=== PATIENT | male | born 1955 | race Caucasian/White ===

== ENCOUNTER 2017-08-01 08:30 | Emergency (ER) | payer BC ==
[~2017-08-01] VITALS: Ht 180.3 cm; Wt 118.2 kg
[~2017-08-01 08:30] MED LIST: PARO10TA PO
[2017-08-01 08:31] VITALS: TEMP 36.7; Ht 180.3 cm; Wt 118.2 kg
[2017-08-01 08:50] VITALS: O2SAT 95
--- NOTE | 2017-08-01 08:55 | EMERGENCY ROOM VISIT NOTE ---
History First contact with patient: 08:37 Chief Complaint: CHEST PAIN Stated Complaint: CHEST DISCOMFORT, FEELING ODD Nursing Triage Summary: pt reports luigi wilburn wondering pains in chest started to sweat this am. thought possibly anxiety not going away. feels alittle foggy. pt reports sx have been going on for a few weeks. denies sob, radiating pain History of Present Illness The patient is a 61 year old male who presents to the Emergency Room with complaints of chest discomfort which began this morning. The patient states he initially describes the discomfort at approximately 6 AM while getting out of bed. He states the pain went away as he got up and was getting ready for work. The patient then went to work, where while sitting in his status, he began experiencing a "weird gentle pain moving around in my chest". He describes some twinges in the left chest wall. He states intermittently, he has been expressing pain for a few weeks. The pain is worse today than it has been over that period of time. He states while sitting at his desk, and when he exerts the pain, he had the urge to move his bowels. He went to the bathroom once, and return to his desk. He states he then had to go and move his bowels again, when he returned to his desk, he began experiencing a foggy sensation, and his arms became sweaty and cold. He states this episode of chest discomfort began at 8:30 this morning. He has not had an EKG performed in years. He denies any exertional chest pain. The bowel movements he experienced were normal. He denies any recent illness or upper respiratory infection symptoms. He does have a history of anxiety-related chest pain, and states this discomfort is similar, however more significant than the discomfort he experienced with anxiety. He denies any chest discomfort at this time, and states his only complaint currently is some fogginess in his head. He denies any headache, dizziness, visual disturbances, difficulty breathing, wheezing, abdominal pain, diarrhea, constipation, cough, congestion, sore throat, upper respiratory infection symptoms, weakness, paresthesias, or other concerning symptoms. The patient does work as an staff electrical engineer, but states he has not been experiencing any increased stress been normal. Review of Systems A complete 10 point review of systems was reviewed with the patient with pertinent positives and negatives as per history of present illness. All else were negative. Social History Smoking Status: Never Smoker Smokeless Tobacco Use: No Alcohol Use: none Drug Use: none Marital Status: Housing Status: lives with family Occupation Status: employed Current/Historical Medications Scheduled Aspirin (Aspirin Ec), 81 MG PO DAILY Physical Exam Vital Signs Date Time Temp Pulse Resp B/P (MAP) Pulse Ox O2 Delivery O2 Flow Rate FiO2 08/01/17 11:09 82 18 152/85 94 Room Air 08/01/17 10:33 76 18 142/79 94 Room Air 08/01/17 08:50 95 Room Air 08/01/17 08:43 84 08/01/17 08:31 36.7 90 18 146/97 98 Room Air Physical Exam VITALS: Vitals are noted on the nurse's note and reviewed by myself. Vital signs stable. GENERAL: This is a 61-year-old obese white male, in no acute distress, nondiaphoretic, well-developed well-nourished. SKIN: The skin was without rashes, erythema, edema, or bruising. There is no tenting of the skin. Capillary reflex less than 2 seconds. HEAD: Normocephalic atraumatic. EARS: External auditory canals clear, tympanic membranes pearly vences without erythema or effusion bilaterally. EYES: Pupils equal round and reactive to light and accommodation. Conjunctivae without injection, sclerae without icterus. Extraocular movements intact. NOSE: Patent, turbinates without inflammation or discharge. No sinus tenderness. MOUTH: Mucous membranes moist. Tonsils are not enlarged. Pharynx without erythema or exudate. Uvula midline. Airway patent. Tongue does not deviate. NECK: Supple without nuchal rigidity. No lymphadenopathy. No thyromegaly. Cervical spine is nontender. No JVD. HEART: Regular rate and rhythm without murmurs gallops or rubs. LUNGS: Clear to auscultation bilaterally without wheezes, rales or rhonchi. No dullness to percussion. No retractions or accessory muscle use. ABDOMEN: Positive bowel sounds x 4. Normal tympanic percussion. Soft, nontender, without masses or organomegaly. Burt sign negative. No guarding or rebound tenderness. MUSCULOSKELETAL: No muscle atrophy, erythema, or edema noted. Full range of motion without joint tenderness in all extremities. No tenderness to palpation. Normal gait. Strength 5/5 throughout. NEURO: Patient was alert and oriented to person place and time. Normal sensation to light and sharp touch. Deep tendon reflexes 2+ throughout. No focal neurological deficits. Medical Decision & Procedures ER Provider Diagnostic Interpretation: CBC was without leukocytosis, anemia, thrombocytopenia. Coagulation studies negative. CMP without significant renal, hepatic, or joint abnormalities. CK-MB was normal. Initial troponin was negative. Repeat troponin at 90 minutes was negative as well. CHEST 2 VIEWS ROUTINE HISTORY: 61 years-old Male chest pain acute atypical chest pain COMPARISON: Chest radiographs 12/01/2007 TECHNIQUE: PA and lateral views of the chest FINDINGS: Cardiomediastinal and hilar silhouettes are within normal limits. No pneumothorax, pleural effusion, focal airspace consolidation or overt pulmonary edema. The bones of the chest appear grossly intact. Degenerative changes are seen within the shoulders and spine. IMPRESSION: No acute process. The above report was generated using voice recognition software. It may contain grammatical, syntax or spelling errors. Electronically signed by: Hao Salas M.D. 08/01/2017 9:14 AM Dictated Date/Time: 08/01/2017 9:13 AM Laboratory Results 08/01/17 08:45 Red Blood Count 5.37, Mean Corpuscular Volume 91.2, Mean Corpuscular Hemoglobin 31.3, Mean Corpuscular Hemoglobin Concent 34.3, Mean Platelet Volume 11.5, Neutrophils (%) (Auto) 45.7, Lymphocytes (%) (Auto) 41.0, Monocytes (%) (Auto) 8.3, Eosinophils (%) (Auto) 4.3, Basophils (%) (Auto) 0.5, Neutrophils # (Auto) 2.75, Lymphocytes # (Auto) 2.47, Monocytes # (Auto) 0.50, Eosinophils # (Auto) 0.26, Basophils # (Auto) 0.03 08/01/17 08:45 Test 08/01/17 08:45 08/01/17 08:51 08/01/17 10:30 White Blood Count 6.02 K/uL (4.8-10.8) Red Blood Count 5.37 M/uL (4.7-6.1) Hemoglobin 16.8 g/dL (14.0-18.0) Hematocrit 49.0 % (42-52) Mean Corpuscular Volume 91.2 fL (80-100) Mean Corpuscular Hemoglobin 31.3 pg (25-34) Mean Corpuscular Hemoglobin Concent 34.3 g/dl (32-36) Platelet Count 167 K/uL (130-400) Mean Platelet Volume 11.5 fL (7.4-10.4) Neutrophils (%) (Auto) 45.7 % Lymphocytes (%) (Auto) 41.0 % Monocytes (%) (Auto) 8.3 % Eosinophils (%) (Auto) 4.3 % Basophils (%) (Auto) 0.5 % Neutrophils # (Auto) 2.75 K/uL (1.4-6.5) Lymphocytes # (Auto) 2.47 K/uL (1.2-3.4) Monocytes # (Auto) 0.50 K/uL (0.11-0.59) Eosinophils # (Auto) 0.26 K/uL (0-0.5) Basophils # (Auto) 0.03 K/uL (0-0.2) RDW Standard Deviation 44.4 fL (36.4-46.3) RDW Coefficient of Variation 13.3 % (11.5-14.5) Immature Granulocyte % (Auto) 0.2 % Immature Granulocyte # (Auto) 0.01 K/uL (0.00-0.02) Prothrombin Time 11.1 SECONDS (9.0-12.0) Prothromb Time International Ratio 1.1 (0.9-1.1) Activated Partial Thromboplast Time 24.0 SECONDS (21.0-31.0) Partial Thromboplastin Ratio 0.9 Anion Gap 8.0 mmol/L (3-11) Est Creatinine Clear Calc Drug Dose 105.7 ml/min Estimated GFR () 98.5 Estimated GFR (Non- 85.0 BUN/Creatinine Ratio 18.5 (10-20) Calcium Level 9.3 mg/dl (8.5-10.1) Total Bilirubin 0.7 mg/dl (0.2-1) Aspartate Amino Transf (AST/SGOT) 23 U/L (15-37) Alanine Aminotransferase (ALT/SGPT) 25 U/L (12-78) Alkaline Phosphatase 78 U/L (45-117) Creatine Kinase MB < 0.5 ng/ml (0.5-3.6) Creatine Kinase MB Ratio (0-3.0) Total Protein 7.5 gm/dl (6.4-8.2) Albumin 3.5 gm/dl (3.4-5.0) Globulin 4.0 gm/dl (2.5-4.0) Albumin/Globulin Ratio 0.9 (0.9-2) Chemistry Specimen Hemolysis Bedside Troponin I < 0.030 ng/ml (0-0.045) Troponin I < 0.015 ng/ml (0-0.045) ECG Indication: chest pain Rate (beats per minute): 80 Rhythm: normal sinus Findings: no acute ischemic change, no ectopy Comparison ECG Date: no prior available ED Course The patient was seen and evaluated as above. Initial EKG ordered, labs obtained. The patient is not experiencing any chest discomfort while here in the emergency department. In fact, he states his pain improved prior to coming. Initial labs and imaging were reviewed. Repeat troponin was performed and was negative. I did recommend cardiology consult, and the patient declines. He states he must leave the emergency department by 11:15, as his has orthopedics appointment. Did recommend attempting to order an performed a stress test, and in the patient declines. I did encourage him to perform this test outpatient. He is agreeable to following up with the primary care and consider outpatient workup. I did discuss with him the risks associated with discharge without performing this test. Discharge instructions reviewed, and the patient was discharged home in good condition. Medical Decision This is a 61-year-old male patient who presents to the emergency department complaining of nonexertional chest discomfort which began this morning upon awakening and again while at work. The patient states he does have history of similar discomfort several years ago, which was related to anxiety. I did recommend further workup with possible stress test and/or cardiology consult. The patient declined, as he states he has places to be. I suspect the patient' s discomfort, given his negative workup and nonexertional nature of the chest pain is associated with anxiety or other noncardiac cause, however given the patient's age and symptoms, I do feel that cardiology consult and stress test is warranted. Discussed the risks versus benefits of leaving prior to having further testing performed. The patient verbalizes understanding and chooses to be discharged. He states he will follow up outpatient, and will consider having the workup performed at that time. I do feel this is reasonable, again given the patient's symptoms, workup, and nonexertional nature of his pain. Etiologies such as cardiac ischemia, aortic dissection, pulmonary embolism, pneumonia, pneumothorax, musculoskeletal, infections, gastrointestinal, as well as others were entertained. Medication Reconcilliation Current Medication List: was personally reviewed by me Blood Pressure Screening Patient's blood pressure: Elevated blood pressure Blood pressure disposition: Elevated BP felt to be situational, Referred to PCP Impression Primary Impression: Atypical chest pain Departure Information Dispostion Home / Self-Care Condition GOOD Referrals No Doctor, Assigned (PCP) Anneliese Howard D.O. Patient Instructions ED Chest Pain NonCardiac, My [facility] Additional Instructions You were seen in the emergency department today for chest pain. I do suspect a noncardiac etiology, however I did recommend stress test. Please follow up in 1-2 days with your PCP for reevaluation and ongoing management. As discussed, I do recommend an outpatient stress test to rule out cardiac etiology. Return to the emergency department for worsening chest pain, difficulty breathing, wheezing, cough, fever, weakness, visual disturbances, numbness/ tingling, facial droop, or other concerning symptoms.
[2017-08-01 09:01] LABS: BASO % 0.5 %; BASO ABS # 0.03 K/uL (0-0.2); EOS % 4.3 %; EOS ABS # 0.26 K/uL (0-0.5); HEMOGLOBIN 16.8 g/dL (14.0-18.0); IG# 0.01 K/uL (0.00-0.02); LYMPH ABS # 2.47 K/uL (1.2-3.4); MEAN CELL VOLUME 91.2 fL (80-100); MEAN CORPUSCULAR HEMOGLOBIN 31.3 pg (25-34); MEAN CORPUSCULAR HGB CONC 34.3 g/dl (32-36); MEAN PLATELET VOLUME 11.5 fL (7.4-10.4); MONO % 8.3 %; NEUT % 45.7 %; NEUT ABS # 2.75 K/uL (1.4-6.5); PLATELET COUNT 167 K/uL (130-400); RED CELL DISTRIBUTION WIDTH CV 13.3 % (11.5-14.5); RED CELL DISTRIBUTION WIDTH SD 44.4 fL (36.4-46.3); WHITE BLOOD COUNT 6.02 K/uL (4.8-10.8)
[2017-08-01 09:08] LABS: INR 1.1 (0.9-1.1)
[2017-08-01] MEDS ORDERED: ASPI81TA28 PO (09:13)
--- NOTE | 2017-08-01 09:15 | DIAGNOSTIC IMAGING REPORT ---
CHEST 2 VIEWS ROUTINE HISTORY: 61 years-old Male chest pain acute atypical chest pain COMPARISON: Chest radiographs 12/01/2007 TECHNIQUE: PA and lateral views of the chest FINDINGS: Cardiomediastinal and hilar silhouettes are within normal limits. No pneumothorax, pleural effusion, focal airspace consolidation or overt pulmonary edema. The bones of the chest appear grossly intact. Degenerative changes are seen within the shoulders and spine. IMPRESSION: No acute process. The above report was generated using voice recognition software. It may contain grammatical, syntax or spelling errors. Electronically signed by: Hao Salas M.D. 08/01/2017 9:14 AM Dictated Date/Time: 08/01/2017 9:13 AM
[2017-08-01 09:30] LABS: ALBUMIN 3.5 gm/dl (3.4-5.0); ALKALINE PHOSPHATASE 78 U/L (45-117); ALT/SGPT 25 U/L (12-78); AST/SGOT 23 U/L (15-37); BLOOD UREA NITROGEN 18 mg/dl (7-18); CALCIUM 9.3 mg/dl (8.5-10.1); CARBON DIOXIDE 25 mmol/L (21-32); CKMB < 0.5 ng/ml (0.5-3.6); CREATININE 0.96 mg/dl (0.60-1.40); GLUCOSE 120 mg/dl (70-99); POTASSIUM 3.9 mmol/L (3.5-5.1); SODIUM 138 mmol/L (136-145); TOTAL PROTEIN 7.5 gm/dl (6.4-8.2)
[2017-08-01 11:09] VITALS: BP 152/85; PULSE 82; O2SAT 94
== END 2017-08-01 11:16 | disposition home or self-care (01) ==
LOC: C.EDB 08:31
DX: R07.89 Other chest pain (principal); F41.9 Anxiety disorder, unspecified; Z79.82 Long term (current) use of aspirin